=== PATIENT | male | born 1960 | race Caucasian/White ===

== ENCOUNTER 2016-12-17 11:46 | Emergency (ER) | payer BC ==
[2016-12-17 11:53] VITALS: BP 138/88
[2016-12-17] MEDS ORDERED: predniSONE TAB* 20 MG PO ONE (11:58)
[2016-12-17] MEDS ORDERED: Albuterol 2.5 MG/3 ML NEB.SOL* (0.083%) INH ONE (11:58)
[2016-12-17] MEDS ORDERED: Ipratropium 0.5MG/2.5ML NEB* 0.5 MG/2.5 ML NEB.SOLN INH ONE (11:58)
--- NOTE | 2016-12-17 15:42 | UC ---
Markel Farrar Alok, scribed for Venice Taylor DO on 12/17/16 at 1250 . Asthma HPI - HPI Summary HPI Summary: 56M with asthma presents to the [facility] due to dyspnea and SOB worsening over the last 11 days. Pt states he has been taking his inhaler in increased frequency and that his dyspnea is usually aggravated by seasonal allergies and high altitude. Pt states he has taken steroids in the past to treat his asthma attacks. Pt states he is out of his QVAR inhaler but still has his albuterol inhaler left. Pt also notes rhinorrhea feeling similar to seasonal allergy reactions. Pt denies fever, chills, sinus pressure, cough, CP, rash, abd pain, nausea, vomiting, or urinary symptoms. PMHx includes asthma and depression/ anxiety. - History of Current Complaint Chief Complaint: UCRespiratory Stated Complaint: ASTHMA ATTACK Time Seen by Provider: 12/17/16 11:57 Hx Obtained From: Patient Onset/Duration: Gradual Onset, Lasting Days, Still Present Timing: Days Initial Severity: Moderate Current Severity: Moderate Location/Character: Wheezing Aggravating: Allergens Alleviating: Steriods, Inhalers/Nebulizers Associated Signs and Symptoms: Positive: Shortness of Breath. Negative: Chest Pain, Edema, URI, Sinus Infection - Allergy/Home Medications Allergies/Adverse Reactions: Allergies Allergy/AdvReac Type Severity Reaction Status Date / Time Amoxicillin [From Augmentin] Allergy Hives Verified 12/17/16 11:53 Clavulanic Acid Allergy Hives Verified 12/17/16 11:53 [From Augmentin] Home Medications: Home Medications Albuterol HFA INHALER* [Ventolin HFA Inhaler*] 2 puff INH Q4HR PRN 12/17/16 [ History Confirmed 12/17/16] Beclomethasone Dipropionate [Qvar] 2 puff INH BID 12/17/16 [History Confirmed ] Citalopram TAB* [Celexa TAB*] 1 tab PO DAILY 12/17/16 [History Confirmed ] PMH/Surg Hx/FS Hx/Imm Hx Respiratory History: Asthma - Surgical History Surgical History: Yes Surgery Procedure, Year, and Place: gall bladder, colonoscopy, broken hand, deviated septum repair. - Family History Known Family History: Positive: Diabetes Negative: Cardiac Disease, Hypertension - Social History Occupation: Employed Full-time Lives: With Family Alcohol Use: Occasionally Substance Use Type: None Smoking Status (MU): Never Smoked Tobacco Review of Systems Constitutional: Negative Skin: Negative ENT: Nasal Discharge Respiratory: Shortness Of Breath, Other - dyspnea Cardiovascular: Negative Gastrointestinal: Negative Genitourinary: Negative All Other Systems Reviewed And Are Negative: Yes Physical Exam Triage Information Reviewed: Yes Appearance: Well-Appearing, No Pain Distress, Well-Nourished Vital Signs: Initial Vital Signs Temp 98.6 F 12/17/16 11:48 Pulse 74 12/17/16 11:48 Resp 18 12/17/16 11:48 BP 138/88 12/17/16 11:48 Pulse Ox 94 12/17/16 11:48 Vital Signs Reviewed: Yes Eyes: Positive: Conjunctiva Clear. Negative: Discharge ENT: Positive: Hearing grossly normal, TMs normal, Other: - Nasal mucosa pale and boggy. Negative: Tonsillar swelling, Tonsillar exudate, Trismus, Muffled/ hoarse voice Neck: Positive: Supple, Nontender Respiratory: Positive: No respiratory distress, No accessory muscle use, Wheezing - diffuse, all feilds Cardiovascular: Positive: RRR, No Murmur Musculoskeletal Exam: Normal Neurological: Positive: Alert, Muscle Tone Normal Psychological Exam: Normal Psychological: Positive: Age Appropriate Behavior Skin Exam: Normal Skin: Positive: Other - warm, dry, skin color normal Asthma Course/Dx - Course Course Of Treatment: RE-EVAL S/P NEB - SUBJECTIVE IMPROVEMENT IN EASE OF BREATHING, BETTER AIR MOVEMENT, SOME DECREASE IN WHEEZING. - Differential Dx/Diagnosis Differential Diagnosis/HQI/PQRI: Acute Asthma, Bronchitis, Pneumonia, Reactive Airway Disease, Other Provider Diagnoses: asthma exacerbation, allergies Discharge - Discharge Plan Condition: Stable Disposition: HOME Prescriptions: Beclomethasone 80 MCG MDI(NF) [Qvar 80 MCG MDI(NF)] 2 puff INH BID #1 mdi predniSONE TAB* [Deltasone TAB*] 40 mg PO DAILY #8 tab Patient Education Materials: Asthma (ED), Beclomethasone (By breathing) Referrals: Rachel Blood MD [Primary Care Provider] - If Needed (FOLLOW UP IN 2 DAYS IF NOT IMPROVING. ) Additional Instructions: TRY USING THE NETTI POT IN THE MORNINGS DISCUSSED. YOU MUST ALWAYS USE CLEAN WATER. CORTICOSTEROID MEDICATION: You have been given a medicine of the cortisone class. This medication is used to control inflammation or allergy. It is usually only given for a short period of time, until the acute process subsides. There are usually no side effects from short-term use of cortisone-like medications. Some persons feel an increased sense of well-being and are not sleepy at bedtime. Long-term use of cortisone medications is best avoided, unless required for a severe condition. If your condition does not remit, or relapses after the course of corticosteroid medication, you should consult your physician. Contact the physician if you develop lightheadedness, black or tarry stools , swelling of the legs, or significant rapid change in weight. INHALED BRONCHODILATORS:USE EVERY 4 HOURS WHILE AWAKE NEEDED FOR SHORTNESS OF BREATH AND WHEEZING You have received a prescription for an inhaled bronchodilator -- a medication which stimulates the airways in the lung to dilate. This improves the flow of air in asthma, bronchitis, and emphysema. These medicines have some similarity to adrenaline, and can cause similar side effects: shakiness, racing heart, and a sense of nervousness. These side effects decrease with time. Contact your doctor if these side effects are severe. Do not over-use the medicine. Too-frequent use of the inhaler may make it ineffective. Call your doctor if the inhaler is not controlling your symptoms at the prescribed doses. The documentation as recorded by the Markel palencia Alok accurately reflects the service I personally performed and the decisions made by me, Venice Taylor DO.
== END 2016-12-17 13:41 | disposition home or self-care (01) ==
LOC: UCEAST 11:46
DX: J45.901 Unspecified asthma with (acute) exacerbation (principal); J31.0 Chronic rhinitis; Z88.1 Allergy status to other antibiotic agents; Z90.49 Acquired absence of other specified parts of digestive tract
CPT/HCPCS: 99212; G0463; J7512; J7644